=== PATIENT | male | born 1960 | race Caucasian/White ===

== ENCOUNTER 2016-12-09 19:53 | Observation (INO) | payer OTHER ==
[~2016-12-09] VITALS: Ht 180.3 cm; Wt 84.0 kg
[~2016-12-09 19:53] MED LIST: CIPR500T4 PO; LEVO125T3 PO; PROP1TAB PO; ROSU20 PO; TAMS0.4C67 PO; UNKNOWN MED
[2016-12-09 19:57] VITALS: BP 190/91; PULSE 49; RESP 14; TEMP 98.5; O2SAT 96
[2016-12-09 20:15] VITALS: O2SAT 98
[2016-12-09 20:52] LABS: AUTOMATED NEUTROPHIL # 4.5 TH/MM3 (1.8-7.7); BASOPHIL # 0.1 TH/MM3 (0-0.2); EOSINOPHIL # 0.1 TH/MM3 (0-0.4); EOSINOPHIL % 0.8 % (0.0-4.0); HEMATOCRIT 41.4 % (39.0-51.0); HEMO FLAGS DIFF FINAL; LYMPH % 17.1 % (9.0-44.0); LYMPHOCYTE # 1.1 TH/MM3 (1.0-4.8); MEAN CELL VOLUME 87.7 FL (80.0-100.0); MEAN CORPUSCULAR HEMOGLOBIN 30.7 PG (27.0-34.0); MONO % 9.7 % (0.0-8.0); NEUT % 71.4 % (16.0-70.0); PLATELET COUNT 182 TH/MM3 (150-450); RED BLOOD COUNT 4.72 MIL/MM3 (4.50-5.90); RED CELL DISTRIBUTION WIDTH 13.5 % (11.6-17.2); WHITE BLOOD COUNT 6.3 TH/MM3 (4.0-11.0)
--- NOTE | 2016-12-09 21:14 | PD ---
HPI Chief Complaint: Chest Pain Time Seen by Provider: 21:14 Travel History International Travel<30 days: No Contact w/Intl Traveler<30days: No Traveled to known affect area: No History of Present Illness HPI 56-year-old male with history of HLD, hypothyroid, GERD, BPH, "throat cancer" presents to the ED by private vehicle for evaluation of right-sided chest pain. Onset approximately 7:15 while waiting to check out at [facility]. Rated 7/10 maximally, patient denies pain on presentation. Described as pressure, radiating to the right arm. Lasting approximately 20 minutes before improving. He endorses accompanying diaphoresis. States that he felt as if he had to belch but did so with no relief. On presentation he states he feels "a little out of it" and endorses mild numbness and tingling of the bilateral hands. He denies headache, dizziness, palpitations, shortness of breath, abdominal pain, nausea, vomiting, limitations to range of motion of the extremities. Patient does endorse increased stress at work for the last 2 hours today. He denies history of anxiety. He endorses strong family history of CAD with a brother who at 40 and father who at age 66 from [place]. 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 He saw his oncologist, Dr. Valencia Rodriguez, on Wednesday. He saw his primary care provider, Dr. Lassiter, approximately one week ago. PFSH Past Medical History Cancer: Yes (SQUAMOUS CELL) Diabetes: No Glaucoma: No Hepatitis: No Hiatal Hernia: No Hypertension: No Thyroid Disease: No Tetanus Vaccination: Unknown Influenza Vaccination: Yes Past Surgical History Oral Surgery: Yes (WISDOM TEETH EXTRACTED) Pacemaker: No Other Surgery: Yes Social History Alcohol Use: Yes (2 DRINKS EVERY OTHER NIGHT) Tobacco Use: No Substance Use: No Allergies-Medications (Allergen,Severity, Reaction): Coded Allergies: No Known Allergies (Verified , 12/09/16) Reported Meds & Prescriptions Reported Meds & Active Scripts Active Reported Bg-E (S-Adenosylmethionine) 200 Mg Tab 200 Mg PO DAILY Omeprazole 40 Mg Cap 40 Mg PO DAILY Levothyroxine (Levothyroxine Sodium) 125 Mcg Tab 125 Mcg PO DAILY Crestor (Rosuvastatin Calcium) 20 Mg Tab 20 Mg PO DAILY Tamsulosin (Tamsulosin HCl) 0.4 Mg Cap 0.4 Mg PO DAILY Finasteride (Finasteride (Alopecia)) 1 Mg Tab 1 Mg PO DAILY Review of Systems Except as stated in HPI: all other systems reviewed are Neg Physical Exam Narrative GENERAL: Well-nourished, well-developed white male in no acute distress. SKIN: Focused skin assessment warm/dry. HEAD: Normocephalic. EYES: No scleral icterus. No injection or drainage. NECK: Supple, trachea midline. No JVD or lymphadenopathy. CARDIOVASCULAR: Regular rate and rhythm without murmurs, gallops, or rubs. Bounding RIGHT DP and radial pulse. 1+ DP pulse on the left. RESPIRATORY: Breath sounds clear and equal bilaterally. No accessory muscle use. GASTROINTESTINAL: Abdomen soft, non-tender, nondistended. Active bowel sounds. MUSCULOSKELETAL: No cyanosis, or edema. The patient is ambulatory and moves the extremities spontaneously. NEUROLOGICAL: Awake and alert. Cranial nerves II through XII intact. Motor and sensory grossly within normal limits. 5/5 muscle strength in all muscle groups. Normal speech. No pronator drift. BACK: Nontender without obvious deformity. No CVA tenderness. Data Data Last Documented VS Vital Signs Date Time Temp Pulse Resp B/P Pulse Ox O2 Delivery O2 Flow Rate FiO2 12/09/16 20:15 98 Room Air 12/09/16 19:57 98.5 49 14 190/91 Orders Electrocardiogram (12/09/16 20:11) Complete Blood Count With Diff (12/09/16 20:11) Basic Metabolic Panel (Bmp) (12/09/16 20:11) Ckmb (Isoenzyme) Profile (12/09/16 20:11) Troponin I (12/09/16 20:11) Chest, Single Ap (12/09/16 20:11) Iv Access Insert/Monitor (12/09/16 20:11) Ecg Monitoring (12/09/16 20:11) Oxygen Administration (12/09/16 20:11) Oximetry (12/09/16 20:11) Aspirin Chew (Aspirin Chew) (12/09/16 21:45) Nitroglycerin Sl (Nitrostat Sl) (12/09/16 22:15) Cta Thor Abd Aorta W Iv C W3d (12/09/16 ) Iohexol 350 Inj (Omnipaque 350 Inj) (12/09/16 22:56) Admit Order (Ed Use Only) (12/09/16 23:04) Place In Observation (12/09/16 23:04) Activity Bed Rest With Brp (12/09/16 23:04) Vital Signs (Adult) Q4H (12/09/16 23:04) Cardiac Rhythm .As Directed (12/09/16 23:04) Notify Dr: Other .PRN (12/09/16 23:04) Notify DrRony Parameters (12/09/16 23:04) Resp Oxygen Nasal Cannula (12/09/16 ) Ckmb (Isoenzyme) Profile (12/09/16 23:04) Ckmb (Isoenzyme) Profile (12/10/16 02:04) Troponin I (12/09/16 23:04) Troponin I (12/10/16 02:04) Electrocardiogram (12/09/16 23:04) Electrocardiogram (12/10/16 02:04) ^ Obtain (12/09/16 23:04) Sodium Chloride 0.9% Flush (Ns Flush) (12/09/16 23:15) Sodium Chloride 0.9% Flush (Ns Flush) (12/10/16 09:00) Correctional Officer / Telemetry QUIN.Q8H (12/09/16 23:04) Diet Heart Healthy (12/10/16 Breakfast) Diet Npo (12/10/16 Breakfast) Clonidine (Catapres) (12/09/16 23:15) Labs Laboratory Tests Test 12/09/16 20:35 White Blood Count 6.3 TH/MM3 Red Blood Count 4.72 MIL/MM3 Hemoglobin 14.5 GM/DL Hematocrit 41.4 % Mean Corpuscular Volume 87.7 FL Mean Corpuscular Hemoglobin 30.7 PG Mean Corpuscular Hemoglobin 35.0 % Concent Red Cell Distribution Width 13.5 % Platelet Count 182 TH/MM3 Mean Platelet Volume 8.5 FL Neutrophils (%) (Auto) 71.4 % Lymphocytes (%) (Auto) 17.1 % Monocytes (%) (Auto) 9.7 % Eosinophils (%) (Auto) 0.8 % Basophils (%) (Auto) 1.0 % Neutrophils # (Auto) 4.5 TH/MM3 Lymphocytes # (Auto) 1.1 TH/MM3 Monocytes # (Auto) 0.6 TH/MM3 Eosinophils # (Auto) 0.1 TH/MM3 Basophils # (Auto) 0.1 TH/MM3 CBC Comment DIFF FINAL Differential Comment Sodium Level 143 MEQ/L Potassium Level 3.8 MEQ/L Chloride Level 104 MEQ/L Carbon Dioxide Level 29.7 MEQ/L Anion Gap 9 MEQ/L Blood Urea Nitrogen 15 MG/DL Creatinine 1.02 MG/DL Estimat Glomerular Filtration 76 ML/MIN Rate Random Glucose 98 MG/DL Calcium Level 9.3 MG/DL Total Creatine Kinase 95 U/L Troponin I LESS THAN 0.02 NG/ML MDM Medical Decision Making Medical Screen Exam Complete: Yes Emergency Medical Condition: Yes Medical Record Reviewed: Yes Differential Diagnosis CP versus ACS versus anxiety versus less likely dissection versus other Narrative Course 56-year-old male with history of HLD, hypothyroid, GERD, BPH, "throat cancer" presents to the ED by private vehicle for evaluation of right-sided chest pain. Onset approximately 7:15 while waiting to check out at [facility]. Rated 7/10 maximally, denies CP on presentation. Described as pressure, radiating to the right arm. Lasting approximately 20 minutes before improving. He endorses accompanying diaphoresis. States that he felt as if he had to belch but did so with no relief. On presentation he states he feels "a little out of it" and endorses mild numbness and tingling of the bilateral hands. He denies headache , dizziness, palpitations, shortness of breath, abdominal pain, nausea, vomiting , limitations to range of motion of the extremities. He endorses strong family history of CAD with a brother who from an [place] at 40 and father at age 66. 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 He saw his oncologist, Dr. Valencia Rodriguez, on Wednesday. He saw his primary care provider, Dr. Lassiter, approximately one week ago. Vitals reviewed. Heart rate 49, BP 190/91 on presentation. No appreciable M/R/G, chest CTAB. Equal pulses in the distal extremities. No focal neural deficits. CBC: No leukocytosis or anemia CMP: Unremarkable Cardiac enzymes: Negative 1 CXR: No acute disease per radiology read. EKG: Rate 49, sinus rhythm. PA interval 128, QRS 97, QTC 408. Normal axis. No ST elevations. Reviewed by Dr. Abernathy. Patient was administered 162 mg aspirin chew. Review of the patient's previous record reveals no history of bradycardia or hypertension. I discussed the results of the workup with the patient. The patient states that when he saw his primary care earlier this week, was hypertensive and told to monitor his blood pressures. I discussed the possibility of dissection with the patient and his family. They would like to proceed with the CTA to rule out dissection. No acute vascular findings on CTA. Patient was administered 0.2 clonidine. He'll be admitted to the chest pain center for serial EKGs, cardiac enzymes and further evaluation. Raisa Oleary December 09, 2016 21:14
[2016-12-09] MEDS ORDERED: ROSU20 PO (21:15)
[2016-12-09] MEDS ORDERED: FINA1TAB16 PO (21:15)
[2016-12-09] MEDS ORDERED: LEVO125T4 PO (21:15)
[2016-12-09] MEDS ORDERED: OMEP40CA2 PO (21:15)
[2016-12-09] MEDS ORDERED: [UNRECOGNIZED DRUG - CODE] PO (21:15)
[2016-12-09] MEDS ORDERED: TAMS0.4C4 PO (21:15)
--- NOTE | 2016-12-09 21:15 | RADRPT ---
EXAM DATE/TIME: 12/09/2016 21:07 [facility] COMPARISON: No previous studies available for comparison. INDICATIONS : Chest pain. MEDICAL HISTORY : None. SURGICAL HISTORY : Port placed and removed. ENCOUNTER: Initial ACUITY: 1 day PAIN SCORE: 10/10 LOCATION: Bilateral chest FINDINGS: A single view of the chest demonstrates the lungs to be symmetrically aerated without evidence of mas s, infiltrate or effusion. The cardiomediastinal contours are unremarkable. Osseous structures are intact. CONCLUSION: No acute disease. Manny Barrett MD on December 09, 2016 at 21:12 Board Certified Radiologist. This report was verified electronically.
[2016-12-09] MEDS ORDERED: [UNRECOGNIZED DRUG - CODE] PO (21:16)
[2016-12-09 21:39] LABS: ANION GAP 9 MEQ/L (5-15); BICARBONATE 29.7 MEQ/L (21.0-32.0); BLOOD UREA NITROGEN 15 MG/DL (7-18); CHLORIDE 104 MEQ/L (98-107); GLOMERULAR FILTRATION RATE 76 ML/MIN (>89); POTASSIUM 3.8 MEQ/L (3.5-5.1); SODIUM (NA) 143 MEQ/L (136-145)
[2016-12-09] MEDS ORDERED: ASPIRIN 81 MG CHEW TAB CHEW ONE (21:45)
[2016-12-09 21:53] LABS: CREATINE KINASE 95 U/L (39-308)
[2016-12-09] MEDS ORDERED: NITROGLYCERIN 0.4 MG SL 25 TABS/BTL SL ONE (22:15)
[2016-12-09] MEDS ORDERED: IOHEXOL 350 MG/ML 10 ML VIAL (for RAD DIAG) IV ONE (22:56)
--- NOTE | 2016-12-09 23:02 | RADRPT ---
EXAM DATE/TIME: 12/09/2016 22:34 [facility] COMPARISON: CHEST SINGLE AP, December 09, 2016, 21:07. INDICATIONS : Right chest pain radiating to arm, diaphoretic, bradycardic IV CONTRAST: 96 cc Omnipaque 350 (iohexol) IV RADIATION DOSE: 9.27 CTDIvol (mGy) MEDICAL HISTORY : Hypercholesterolemia. Hypothyroidism. Gastroesophageal reflux disease.Throat cancer. SURGICAL HISTORY : None. ENCOUNTER: Initial ACUITY: 1 day PAIN SCALE: 8/10 LOCATION: Right chest TECHNIQUE: Volumetric scanning was performed using a multi-row detector CT scanner. The data was post processed with a variety of visualization algorithms including full volume maximum intensity projection, multi -planar sliding thin slab reformation, curved planar reformation, and surface rendering techniques. Using automated exposure control and adjustment of the mA and/or kV according to patient size, radiat ion dose was kept as low as reasonably achievable to obtain optimal diagnostic quality images. FINDINGS: LUNGS: Minimal bibasilar atelectasis, right worse than left. MEDIASTINUM: No abnormally enlarged lymph nodes by CT criteria. No axillary or hilar abnormalities are identified. ABDOMEN: The liver and spleen are free of focal defects. The gallbladder and pancreas demonstrate no abnormali ty. The adrenal glands are normal. The kidneys demonstrate no evidence of solid renal mass or hydrone phrosis. No free fluid or abdominal masses are identified. No para-aortic adenopathy is seen. PELVIS: There is a probable diverticulum arising from the posterior left bladder base. Prostatic calcificatio ns are noted. Previous inguinal hernia repairs. THORACIC AORTA: Truncus arch anatomy. No evidence of large vessel stenosis. Thoracic aorta is normal in caliber and a ppearance throughout with no aneurysm, stenosis or dissection. Minimal coronary artery calcification noted. ABDOMINAL AORTA: The aorta is normal in caliber without aneurysm or dissection. The renal arteries are patent bilater ally. The proximal celiac and superior mesenteric arteries are patent and normal in diameter. PELVIC VESSELS: The internal iliac and external iliac vessels are patent without aneurysm or stenosis. CONCLUSION: No acute vascular findings. Manny Barrett MD on December 09, 2016 at 22:56 Board Certified Radiologist. This report was verified electronically.
[2016-12-09] MEDS ORDERED: cloNIDine HCL 0.2 MG TAB PO ONE (23:15)
[2016-12-09] MEDS ORDERED: SODIUM CHLORIDE 0.9% FLUSH 10 ML FLUSH IV FLUSH PRN (23:15)
[2016-12-10] VITALS (9 sets, daily range): BP systolic 119–179; BP diastolic 68–99; PULSE 40–44; RESP 18–20; TEMP 98.2–98.5; O2SAT 94–98
[2016-12-10 00:33] LABS: CREATINE KINASE 85 U/L (39-308)
[2016-12-10 02:52] LABS: CREATINE KINASE 73 U/L (39-308)
--- NOTE | 2016-12-10 08:08 | HHI.HP ---
[facility] Primary Care Physician Juli Lyons MD Chief Complaint Chest pain History of Present Illness 56-year-old patient with history of hyperlipidemia presents to the emergency room for further evaluation of chest pain. Onset last evening approximately 7: 15 PM after getting off work. States he was standing in line at [employer] suddenly developed right anterior chest pressure, described as "someone pushing on my chest." No associated symptoms. Duration approximately 30 minutes. Endorses he has been under a lot of stress with an unexpected deficits 8 months ago, job stress, and planning a graduation further youngest child. Endorses similar chest discomfort over the years and was told chest pains were stress related and one time told it was related to indigestion. No known relieving factors. Review of Systems General: No fatigue,weakness, fever, chills, recent illness, recent travel, or change in appetite. States he is in his general state of health. Endorses stress after the unexpected of his 8 months ago. HEENT: No DOWELL, no nasal congestion or drainage, no dysphasia CV: As stated above. Denies any current chest pain or pressure. No palpitations or dizziness. RESP: No SOB, cough, wheeze, or recent URI. GI: No nausea, vomiting, bowel changes, diarrhea, constipation, pain, distention , melena, blood in the stool. No change in appetite, no unintentional weight gain or weight loss : No dysuria, urgency, frequency, history of BPH currently on medications. EXT: No lower leg edema, no paraesthesias MS: No discomfort or change in ROM NEURO: No change in memory, dizziness, difficulty with balance, LOC, motor/ sensory deficits PSYCH: Endorses situational stress and possible anxiety. States after the loss of his he is learning to do many things she used to manage. No depression or suicidal ideation. 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 Past Surgical History Neck and tonsillar mass removed Reported Medications Active Reported Bg-E (S-Adenosylmethionine) 200 Mg Tab 200 Mg PO DAILY Omeprazole 40 Mg Cap 40 Mg PO DAILY Levothyroxine (Levothyroxine Sodium) 125 Mcg Tab 125 Mcg PO DAILY Crestor (Rosuvastatin Calcium) 20 Mg Tab 20 Mg PO DAILY Tamsulosin (Tamsulosin HCl) 0.4 Mg Cap 0.4 Mg PO DAILY Finasteride (Finasteride (Alopecia)) 1 Mg Tab 1 Mg PO DAILY Active Ordered Medications Current Medications Medications (Trade) Dose Ordered Sig/Kali Route Start Time Stop Time Status Last Admin (Tylenol) 500 mg Q4H PRN PO 12/10/16 08:15 UNV (Zofran Inj) 4 mg Q6H PRN IV 12/10/16 08:15 UNV (Nitrostat Sl) 0.4 mg Q5M PRN SL 12/10/16 08:15 UNV (Aspirin) 325 mg DAILY PO 12/10/16 09:00 UNV Family History Positive for early onset cardiovascular disease. Father at age 41 from massive heart attack. Father from heart attack at age 66. Social History Known hyperlipidemia. No known diabetes or hypertension. Quit smoking 7 years ago. Endorses occasional drink every other night. Denies any illegal drug use. In endorses he quit going to the gym and playing [employer] 2 months ago with plans to restart. Past cardiac testing Exercise stress test approximately one year ago unremarkable. Endorses multiple stress tests since age 40 after brother's passing. No personal coronary disease to his knowledge. 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 Never required cardiac catheterization. Physical Exam Vital Signs Vital Signs Date Time Temp Pulse Resp B/P Pulse Ox O2 Delivery O2 Flow Rate FiO2 12/10/16 07:46 98.2 42 20 144/79 98 12/10/16 07:18 94 21 12/10/16 04:36 98.4 40 20 120/68 98 12/10/16 01:59 98.3 43 19 119/68 97 12/10/16 00:29 154/91 12/10/16 00:19 96 12/10/16 00:00 179/99 12/09/16 20:15 98 Room Air 12/09/16 20:15 99 Room Air 12/09/16 19:57 98.5 49 14 190/91 96 Room Air Physical Exam GENERAL: Alert WN, WD, NAD, pleasant, male HEAD: NC, AT EYES: Sclera clear, conjunctiva without injection, pupils equal and round ENT: Mucous membranes pink and moist NECK: Supple, no masses, trachea midline CV: Regular bradycardic rhythm, without murmur, rub, gallop, no JVD, S1-S2 no S3 -S4. RESP: Clear lungs throughout bilateral, no crackles, wheeze, rhonchi, symmetrical chest rise, nonlabored, able to speak in full sentences ABD: Soft, NT, ND, no masses, positive bowel tones EXT: Pulses +24, no dependent edema MS: Normal tone 4 extremities, nontender, no obvious deformities, full range of motion NEURO: CN II through CN XII grossly intact, motor strength 5/5, gait WNL PSYCH: A+O 3, pleasant affect, appropriate speech, appropriate mood and affect , insight and judgment SKIN: Normal turgor, normal texture, no lesions, no rashes, brisk cap refill, even hair distribution Laboratory Laboratory Tests Test 12/09/16 12/09/16 12/10/16 20:35 23:41 02:21 White Blood Count 6.3 Red Blood Count 4.72 Hemoglobin 14.5 Hematocrit 41.4 Mean Corpuscular Volume 87.7 Mean Corpuscular Hemoglobin 30.7 Mean Corpuscular Hemoglobin 35.0 Concent Red Cell Distribution Width 13.5 Platelet Count 182 Mean Platelet Volume 8.5 Neutrophils (%) (Auto) 71.4 Lymphocytes (%) (Auto) 17.1 Monocytes (%) (Auto) 9.7 Eosinophils (%) (Auto) 0.8 Basophils (%) (Auto) 1.0 Neutrophils # (Auto) 4.5 Lymphocytes # (Auto) 1.1 Monocytes # (Auto) 0.6 Eosinophils # (Auto) 0.1 Basophils # (Auto) 0.1 CBC Comment DIFF FINAL Differential Comment Sodium Level 143 Potassium Level 3.8 Chloride Level 104 Carbon Dioxide Level 29.7 Anion Gap 9 Blood Urea Nitrogen 15 Creatinine 1.02 Estimat Glomerular Filtration 76 Rate Random Glucose 98 Calcium Level 9.3 Total Creatine Kinase 95 85 73 Troponin I LESS THAN 0.02 LESS THAN 0.02 LESS THAN 0.02 Result Diagram: 12/09/16203412/09/162034 Imaging Last Impressions Chest X-Ray 12/09/162010 Signed Impressions: Service Date/Time: Friday, December 09, 2016 21:07 - CONCLUSION: No acute disease. Manny Barrett MD Aorta CTA 12/09/16 0000 Signed Impressions: Service Date/Time: Friday, December 09, 2016 22:34 - CONCLUSION: No acute vascular findings. Manny Barrett MD Course EKGs Normal sinus bradycardic rhythm, no ST or T-segment changes Assessment and Plan Assessment and Plan #1 Chest painadmitted to chest pain center. Ruled out with 3 sets of cardiac enzymes, EKGs, monitor overnight. Seen and evaluated by Dr. Deepa Valle. Original plan was for treadmill stress test however patient unable to reach target heart rate, therefore chemical stress test ordered. Naturally if stress test unremarkable will later be discharged this afternoon. Patient is agreeable to plan of care. #2 Situational stressencouraged daily activity of 20-30 minutes and explore option of support group. #3 GERDcontinue omeprazole #4 Hyperlipidemiacontinue Crestor #5 Hypothyroidismcontinue levothyroxine Karen Padilla [facility] December 10, 2016 08:08
[2016-12-10] MEDS ORDERED: ACETAMINOPHEN 500 MG CPLT PO PRN (08:15)
[2016-12-10] MEDS ORDERED: ONDANSETRON HCL 4 MG/2 ML VIAL IV PRN (08:15)
[2016-12-10] MEDS ORDERED: NITROGLYCERIN 0.4 MG SL 25 TABS/BTL SL PRN (08:15)
[2016-12-10] MEDS ORDERED: SODIUM CHLORIDE 0.9% FLUSH 10 ML FLUSH IV FLUSH SCH (09:00)
[2016-12-10] MEDS ORDERED: ASPIRIN 325 MG TAB PO SCH (09:00)
[2016-12-10] MEDS ORDERED: LEVOTHYROXINE SODIUM 125 MCG TAB PO SCH (11:00)
[2016-12-10] MEDS ORDERED: PANTOPRAZOLE SOD 40 MG DELAYED RELEASE TAB PO SCH (11:15)
[2016-12-10] MEDS ORDERED: ATORVASTATIN 40 MG TAB PO SCH (11:15)
[2016-12-10] MEDS ORDERED: REGADENOSON INJ 0.4 MG/5 ML SYR ONE (13:30)
--- NOTE | 2016-12-10 14:57 | RADRPT ---
EXAM DATE/TIME: 12/10/2016 13:08 [facility] COMPARISON: No previous studies available for comparison. INDICATIONS : Chest pain. Angina. DOSE: 25.8 mCi Tc99m Myoview at stress. 8.4 mCi Tc99m Myoview at rest. 0.4 mg Lexiscan STRESS SYMPTOMS: Nausea, stomach cramps and dry mouth. EJECTION FRACTION: 60% MEDICAL HISTORY : Hypothyroidism. Benign prostatic hyperplasia (BPH). Carcinoma, squamous cell. SURGICAL HISTORY : None. ENCOUNTER: Initial ACUITY: 1 day PAIN SCALE: 3/10 LOCATION: Bilateral chest TECHNIQUE: The patient underwent pharmacologic stress with infusion of prescribed dose. Continuous ECG tracing was monitored during stress. Gated SPECT imaging was performed after stress and conventional SPECT i maging was performed at rest. The examination was performed on a SPECT/CT scanner, both attenuation and non-corrected datasets were reviewed. FINDINGS: DISTRIBUTION: The maximum perfused segment at stress is in the septal wall. PERFUSION STUDY: The pattern of perfusion at stress is within normal limits. GATED STUDY: There is intact wall motion and thickening without hypokinetic or dyskinetic segments. CONCLUSION: 1. No significant reversibility identified to suggest ischemia. 2. Normal wall motion with ejection fraction 60%. RISK CATEGORY: Low (<1% Annual Mortality Rate) Tio Dalton MD on December 10, 2016 at 14:48 Board Certified Radiologist. This report was verified electronically.
--- NOTE | 2016-12-10 15:21 | HHI.DCPOC ---
Discharge Care Plan Diagnosis: (1) Musculoskeletal chest pain (2) Situational stress Goals to Promote Your Health * To prevent worsening of your condition and complications * To maintain your health at the optimal level Directions to Meet Your Goals Take your medications as prescribed Follow your dietary instruction Follow activity as directed Keep your appointments as scheduled Take your immunizations and boosters as scheduled If your symptoms worsen call your PCP, if no PCP go to Urgent Care Center or Emergency Room Smoking is Dangerous to Your Health. Avoid second hand smoke Call the 24-hour hour crisis hotline for domestic abuse at Karen Padilla December 10, 2016 15:21
--- NOTE | 2016-12-11 09:26 | TR ---
Date Performed: 12/10/2016 Time Performed: 13:44:00 DOCTOR: Deepa Valle DRUG LIST: CLINICAL HISTORY: REASON FOR TEST: CHEST PAIN REASON FOR ENDING: OBSERVATION: CONCLUSION: Lexiscan stress test was performed under standard four minute protocol. Radionuclid e was injected one minute prior to ending the test. No electrocardiographic abormalities were present to suggest ischemia. Nuclear imaging and interpretation are pending. COMMENTS:
--- NOTE | 2016-12-11 09:28 | TR ---
Date Performed: 12/10/2016 Time Performed: 09:47:26 DOCTOR: Deepa Valle DRUG LIST: CLINICAL HISTORY: REASON FOR TEST: REASON FOR ENDING: OBSERVATION: CONCLUSION: David protocol completed. Stopped sec to leg fatigue and freq PVCs.Maximum LO=272 Ta rget HR Achieved=77.0 Maximum PA=909/82 Total Exercise Time=10:20. No reprod chest discomfort. No st t segment changes. Freq PVCs and bijem during stage 3 and 4. Great exercise tolerance. Normal bp resp onse. Recovery quick and unremarkable. COMMENTS:
--- NOTE | 2016-12-11 09:29 | EKG ---
Date Performed: 12/10/2016 Time Performed: 01:09:15 PTAGE: 56 years EKG: SINUS BRADYCARDIA MODERATE INTRAVENTRICULAR CONDUCTION DELAY BORDERLINE ECG INTERPRETATION BASED ON A DEFAULT AGE OF 40 YEARS Since PREVIOUS TRACING , no significant change noted PREVIOUS TRACIN12/09/2016 20.17 DOCTOR: Deepa Valle Interpretating Date/Time 12/11/2016 09:29:31
--- NOTE | 2016-12-11 09:29 | EKG ---
Date Performed: 12/10/2016 Time Performed: 02:23:55 PTAGE: 56 years EKG: SINUS BRADYCARDIA NONSPECIFIC T-WAVE ABNORMALITY BORDERLINE ECG Since PREVIOUS TRACING , no significant change noted PREVIOUS TRACIN12/09/2016 20.17 DOCTOR: Deepa Valle Interpretating Date/Time 12/11/2016 09:29:17
--- NOTE | 2016-12-11 09:30 | EKG ---
Date Performed: 12/09/2016 Time Performed: 20:17:51 PTAGE: 56 years EKG: SINUS BRADYCARDIA BORDERLINE ECG Since PREVIOUS TRACING , no significant change noted PREVIOUS TRACIN11/13/2001 17.45 DOCTOR: Deepa Valle Interpretating Date/Time 12/11/2016 09:29:55
== END 2016-12-10 18:45 | disposition home or self-care (01) ==
LOC: NEPC 19:53 → NEDA 23:08 → NEPGCP 12-10 01:36
PROVIDERS: ADMIT Internal Medicine Cardiovascular Disease; ATTEND Internal Medicine Cardiovascular Disease
DX: R07.89 Other chest pain (principal); E78.5 Hyperlipidemia, unspecified; K21.9 Gastro-esophageal reflux disease without esophagitis; F43.9 Reaction to severe stress, unspecified; E03.9 Hypothyroidism, unspecified; N40.0 Benign prostatic hyperplasia without lower urinary tract symptoms; Z85.818 Personal history of malignant neoplasm of other sites of lip, oral cavity, and pharynx; Z92.21 Personal history of antineoplastic chemotherapy; Z92.3 Personal history of irradiation; Z82.49 Family history of ischemic heart disease and other diseases of the circulatory system; Z87.891 Personal history of nicotine dependence; E78.00 Pure hypercholesterolemia, unspecified; Z85.828 Personal history of other malignant neoplasm of skin
CPT/HCPCS: 71010; 71275; 74174; 78452; 80048; 82550; 84484; 85025; 93005; 93017; 99285; A9502; G0378; J2785; Q9967